=== PATIENT | male | born 1965 | race Hispanic/Latino ===

== ENCOUNTER 2017-03-03 09:04 | Emergency (ER) | payer OTHER ==
[2017-03-03] MEDS ORDERED: HYDROcodone/Acetaminophen 10/325 mg Tablet ONE (09:28)
[2017-03-03] MEDS ORDERED: Diazepam 10 MG/2 ML SYRINGE ONE (09:29)
[2017-03-03] MEDS ORDERED: Ketorolac Tromethamine 30 MG/ML VIAL ONE (09:29)
[2017-03-03] MEDS ORDERED: Cyclobenzaprine 10 MG TAB ONE (10:08)
--- NOTE | 2017-03-03 10:38 | RAD ---
LEFT SHOULDER 3 VIEWS: HISTORY: Injury, left shoulder pain. FINDINGS/IMPRESSION: No acute fracture or dislocation is identified. There are degenerative changes in the acromioclavicu lar joint. POS: OFF
== END 2017-03-03 10:50 | disposition home or self-care (01) ==
LOC: MADERS 09:04
DX: M25.512 Pain in left shoulder (principal)
CPT/HCPCS: 96374; J1885; J3360

== ENCOUNTER 2019-07-19 09:44 | Emergency (ER) | payer OTHER ==
--- NOTE | 2019-07-19 10:14 | RAD ---
EXAM: 3 views of the right shoulder HISTORY: Shoulder pain COMPARISON: None FINDINGS: There is no evidence of acute fracture or dislocation. No degenerative changes are present. No soft tissue swelling is seen. The visualized thorax is unremarkable. IMPRESSION: No evidence of acute osseous abnormality.
[2019-07-19] MEDS ORDERED: Ibuprofen 800 MG TAB ONE (10:22)
[2019-07-19] MEDS ORDERED: Acetaminophen 500 MG TAB ONE (10:22)
== END 2019-07-19 11:05 | disposition home or self-care (01) ==
LOC: MADERS 09:44
DX: S43.401A Unspecified sprain of right shoulder joint, initial encounter (principal); W18.30XA Fall on same level, unspecified, initial encounter

== ENCOUNTER 2022-03-13 09:21 | Emergency (ER) | payer OTHER | END 2022-03-13 10:35 | disposition home or self-care (01) | LOC: MADERS 09:21 | DX: S43.402A Unspecified sprain of left shoulder joint, initial encounter (principal); M19.012 Primary osteoarthritis, left shoulder; X50.9XXA Other and unspecified overexertion or strenuous movements or postures, initial encounter ==

== ENCOUNTER 2024-07-16 11:17 | Emergency (ER) | payer OTHER ==
[2024-07-16] MEDS ORDERED: Acetaminophen 500 MG TAB ONE (11:54)
[2024-07-16] MEDS ORDERED: Ibuprofen 800 MG TAB ONE (11:54)
== END 2024-07-16 12:24 | disposition home or self-care (01) ==
LOC: MADERS 11:17
DX: M25.512 Pain in left shoulder (principal)
CPT/HCPCS: 99283